=== PATIENT | male | born 1950 | race Caucasian/White ===

== ENCOUNTER → 2019-05-28 06:46 | Day surgery (SDC) | payer BC, MEDICARE ==
[~2019-05-28 06:46] MED LIST: Buffered Lidocaine 1% SYRIN* 1 ML/SYRINGE INTRADERM ONE; Bupivacaine 0.25% EPI 200,000* 30 ML SDV ONE; Cisatracurium* 2 MG/ML MDV 5 ML ONE; Dexamethasone IV* 4 MG/ML 1 ML (4 MG) ONE; EPHEDrine (Pressors)* 50 MG/ML VIAL ONE; Famotidine IV* 10 MG/ML 2 ML (20 mg) IV ONE; Famotidine IV* 10 MG/ML 2 ML (20 mg) ONE; Ketorolac INJ* 30 MG/ML 1 ML VIAL ONE; Lactated Ringers 1000 ML Bag* 1,000 ML IV SCH; Lidocaine 2% PF * 5 ML VIAL ONE; Midazolam* 1 MG/ML 5 ML VIAL (5 MG) ONE; Naloxone* 0.4 MG/ML 1 ML VIAL IV PRN; Ondansetron INJ* 2 MG/ML VIAL IV PRN; Ondansetron INJ* 2 MG/ML VIAL ONE; Propofol* 10 MG/ML 20 ML BTL ONE; ceFAZolin 2 GM in NS PREMIX(*) 2 GM/100 ML BAG IVPB ONE; fentaNYL* 50 MCG/ML 2 ML VIAL (100 MCG VIAL) IV PRN; fentaNYL* 50 MCG/ML 2 ML VIAL (100 MCG VIAL) ONE; oxyCODONE/Acetamin 5/325 MG* TAB PO PRN
--- NOTE | 2019-05-28 11:23 | OP ---
Operative Report - Blank - Operative Report Date of Operation: 05/28/19 Note: OPERATIVE REPORT Pre-op: Bilateral inguinal hernias Post-Op: Bilateral indirect inguinal hernias Procedure:Totally extraperitoneal laparoscopic (TEPP) repair with mesh of bilateral indirect inguinal hernias Surgeon: MD Ellyn Asst: KEELY Bustos Anes: general with local , Dr. Ford IVF:1 liter of crystalloid EBL:min Specimen: none Drain: none Wound: 1 Findings: Bilateral indirect inguinal hernias To PACU
[2019-05-28 14:17] VITALS: BP 125/71
--- NOTE | 2019-05-28 21:42 | OP ---
DATE OF OPERATION: 05/28/19 [facility] DATE OF : 50 SURGEON: Trevor Ragland MD. TYPESETTERS PRINTER: KEELY Thayer. ANESTHESIOLOGIST: Dr. Ford. ANESTHESIA: General with local. PRE-OP DIAGNOSIS: Bilateral inguinal hernias. POST-OP DIAGNOSIS: Bilateral indirect inguinal hernias. OPERATIVE PROCEDURE: Total extraperitoneal laparoscopic repair of bilateral indirect inguinal hernias with mesh. ESTIMATED BLOOD LOSS: Minimal. IV FLUIDS: 1.5 L of crystalloid. SPECIMENS: None. WOUND CLASSIFICATION: I. COMPLICATIONS: None. DRAINS: None. FINDINGS: Bilateral indirect inguinal hernias, left greater than right, with a left internal ring fatty lipoma. DESCRIPTION OF PROCEDURE: Written informed consent was obtained, the abdomen was marked with indelible ink, and preoperative antibiotics were administered. The patient was taken to the operating room and placed in the supine position, where sequential compression devices and a warming blanket were applied. General anesthesia was administered. A Mejia catheter was inserted. The abdomen and both groins were prepped and draped in the usual sterile fashion. Time-out verification was completed. Initially, a small transverse incision was made just to the right of midline below the umbilicus, and the anterior rectus fascia was identified and divided transversely. The right rectus muscle was retracted medially to expose the posterior rectus sheath. This space was then developed with a Makeda clamp down the midline, and a Spacemaker balloon was placed and passed down subcutaneously down to the pubic tubercle with care. Under direct vision of the camera, the balloon was then inflated with approximately 13 to 14 squeezes of the hand pump to develop the extraperitoneal space. The balloon was then deflated and removed , and a 12 mm blunt port was inserted, and the extraperitoneal space was insufflated to 12 mmHg, and the patient was placed in Trendelenburg position. Two 5 mm ports were then placed in the midline between the umbilicus and the pubis. Dissection commenced at the midline of the pubic tubercle, and left and right Mauricio's ligament were identified. We then worked laterally on the right side to identify the epigastric vessels as they ascended up on to the anterior abdominal wall, and the space lateral was then developed using blunt dissection with 2 graspers to expose the anterior abdominal wall and the iliotibial tract. Once these essential structures had been identified, the peritoneal reflection laterally was identified and followed medially. There was a small indirect inguinal hernia sac, which was reduced with care to prevent injury to the peritoneum and no rents were made. This was reduced well back into the posterior retroperitoneum. I noted no evidence of a direct space hernia or cord lipoma. The right vas deferens was identified and protected from injury throughout. Next, attention was turned to the left side with similar dissection. The Mauricio 's ligament on the left was more exposed. There was a little bit more difficulty identifying the left epigastric vessels as there was some fatty tissue along the anterior abdominal wall; but, once these had been identified and reflected onto the anterior abdominal wall, we were able to develop the space laterally to include the anterior abdominal wall and the iliotibial tract. Likewise, the peritoneal reflection laterally was identified and worked medially and followed medially. Here, there was a moderate-size left peritoneal sac which extended down the internal ring, which was reduced with some tedious dissection, but successfully was reduced and once again, the peritoneum was identified along the posterior retroperitoneum extending down into the pelvis. There appeared to be no direct space hernia. There also was a left internal ring cord lipoma, which was excised and brought out through one of the 5 mm ports. Once this dissection was complete, a 10 x 15 cm self-gripping mesh was trimmed to approximately 10 x 13 cm and folded appropriately, marked, and placed into the extraperitoneal space. It was opened and placed over the direct and indirect spaces with good overlap to the right of midline and onto the anterior abdominal wall as well as laterally and on the posterior floor of the abdomen. Care was taken to note that the peritoneum was reflected well posterior to the inferior margin of the mesh on the left. Likewise, a second piece of similar mesh was then cut to about the same size and folded and moistened and placed into the space. It was unfurled and placed over the pubic tubercle and the Mauricio's ligament medially and onto the anterior abdominal wall and to the retroperitoneum extending out to the iliac crest. It was positioned nicely without folds or wrinkling. Once again, the peritoneum was also identified to be well proximal to the inferior margin of the mesh. Hemostasis was assured. Both mesh were held in place using graspers and the extraperitoneal space was desufflated. The anterior rectus sheath was closed with interrupted 0 Vicryl suture. The skin at all 3 incisions was approximated with subcuticular 4-0 Vicryl suture. Steri-Strips were applied. The patient tolerated the procedure well and was taken to the recovery room in stable condition. [id number]/[facility] #: [id number] MTDD
== END | disposition home or self-care (01) ==
LOC: OR 06:46
PROVIDERS: ATTEND Surgery
DX: K40.20 Bilateral inguinal hernia, without obstruction or gangrene, not specified as recurrent (principal); I10 Essential (primary) hypertension; E03.9 Hypothyroidism, unspecified; D47.2 Monoclonal gammopathy; E78.5 Hyperlipidemia, unspecified; M10.9 Gout, unspecified; Z85.828 Personal history of other malignant neoplasm of skin
CPT/HCPCS: C1781; J0690; J1100; J1885; J2250; J2405; J2704; J3010